=== PATIENT | female | born 1980 | race Hispanic/Latino ===

== ENCOUNTER 2018-03-14 11:21 | Emergency (ER) | payer SELFPAY ==
[2018-03-14 12:09] LABS: Absolute Lymphocytes (CBC) 1.4 K/uL (0.7-4.9); Absolute Monocytes 0.5 K/uL (0.1-1.3); Absolute Neutrophil 4.7 K/uL (1.8-8.0); Basophils % 0.6 % (0-1.3); Eosinophils % 1.6 % (0-4.4); Hematocrit 27.6 % (36.0-45.0); Lymphocytes % 20.5 % (15.3-44.8); MPV 10.7 fL (7.6-11.3); Monocytes % 7.1 % (3.3-12.3); RBC Red Blood Cell Count 3.95 M/uL (3.86-4.86)
--- NOTE | 2018-03-14 12:23 | RAD REPORT ---
EXAM DESCRIPTION: RAD - Chest Single View - 03/14/2018 12:17 pm CLINICAL HISTORY: DYSPNEA Chest pain. COMPARISON: No comparisons FINDINGS: Portable technique limits examination quality. The lungs are grossly clear. The heart is normal in size. No displaced fractures. IMPRESSION: No acute intrathoracic process suspected.
[2018-03-14 12:34] LABS: ALT/SGPT 21 U/L (12-78); AST/SGOT 23 U/L (15-37); Albumin 3.6 g/dL (3.4-5.0); Alkaline Phosphatase 97 U/L (45-117); BUN Blood Urea Nitrogen 11 mg/dL (7-18); Bicarbonate 24 mmol/L (21-32); Bilirubin Direct < 0.1 mg/dL (0-0.2); Bilirubin Total 0.2 mg/dL (0.2-1.0); Glucose Level 89 mg/dL (74-106); Magnesium 2.2 mg/dL (1.8-2.4); NT PRO-BNP 77 pg/mL (<125); Potassium 4.1 mmol/L (3.5-5.1); Protein, Total 7.9 g/dL (6.4-8.2); Sodium Level 139 mmol/L (136-145)
[2018-03-14 12:44] LABS: Anisocytosis 1+; Blood Morphology Comment NOTED (NOT SEEN); Hypochromasia 1+; Platelet Estimate ADEQ
[2018-03-14] MEDS ORDERED: ACETAMINOPHEN 325 MG TABLET ONE (12:53)
--- NOTE | 2018-03-14 13:33 | RAD REPORT ---
EXAM DESCRIPTION: CT - Head Brain Wo Cont - 03/14/2018 1:08 pm CLINICAL HISTORY: HEADACHE Hypertension COMPARISON: 07/18/2015 TECHNIQUE: All CT scans are performed using dose optimization technique as appropriate and may inclu de automated exposure control or mA/KV adjustment according to patient size. FINDINGS: No intracranial hemorrhage, hydrocephalus or extra-axial fluid collection.No areas of brai n edema or evidence of midline shift. The paranasal sinuses and mastoids are clear. The calvarium is intact. IMPRESSION: No acute intracranial abnormality.
[2018-03-14 13:38] LABS: Urine Blood TRACE (NEG); Urine Glucose NEGATIVE (NEG); Urine Protein NEGATIVE (NEG); Urine pH 6.5 (5.0-7.0)
--- NOTE | 2018-03-14 13:42 | ER ---
Nurse's Notes [facility] Name: Marii Bahena Age: 37 yrs Sex: Female : 1980 Arrival Date: 03/14/2018 Time: 11:23 Bed 17 Private MD: None, None Diagnosis: Essential (primary) hypertension;Anemia, unspecified Presentation: 03/14 11:33 Presenting complaint: Patient states: "My blood pressure has been high all weekend. lk1 Since Thursday I have felt really tired and short of breath. It feels like I have been running, and I have not.". Transition of care: patient was not received from another setting of care. Onset of symptoms was March 12, 2018. Risk Assessment: Do you want to hurt yourself or someone else? Patient reports no desire to harm self or others. Initial Sepsis Screen: Does the patient meet any 2 criteria? No. Patient's initial sepsis screen is negative. Does the patient have a suspected source of infection? No. Patient's initial sepsis screen is negative. Care prior to arrival: None. 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 - Social history:: Smoking status: Patient/guardian denies using tobacco. - Ebola Screening: : Patient negative for fever greater than or equal to 101.5 degrees Fahrenheit, and additional compatible Ebola Virus Disease symptoms Patient denies exposure to infectious person Patient denies travel to an Ebola-affected area in the 21 days before illness onset No symptoms or risks identified at this time. Screenin:40 Abuse screen: Denies threats or abuse. Nutritional screening: No deficits noted. em Tuberculosis screening: No symptoms or risk factors identified. Fall Risk None identified. Assessment: 11:48 General: Appears in no apparent distress. comfortable, Behavior is calm, cooperative. em Pain:. Pain: Complains of pain in head Pain currently is 4 out of 10 on a pain scale. Pain began 1 day ago. Neuro: Level of Consciousness is awake, alert, obeys commands, Oriented to person, place, time, situation, Moves all extremities. Gait is steady, Speech is normal, Reports headache Denies dizziness. Cardiovascular: Reports shortness of breath, Capillary refill < 3 seconds Patient's skin is warm and dry. Respiratory: Airway is patent Respiratory effort is even, unlabored, Respiratory pattern is regular, symmetrical. GI: Abdomen is flat. : Urine is clear. EENT: No signs and/or symptoms were reported regarding the EENT system. Derm: Skin is intact, Skin is pink, warm \\T\\ dry. Musculoskeletal: Range of motion: intact in all extremities. 11:50 General: The previous assessment is accurate. Call light remains within reach. . ss 12:30 Reassessment: Patient appears in no apparent distress at this time. Patient and/or em family updated on plan of care and expected duration. Pain level reassessed. Patient is alert, oriented x 3, equal unlabored respirations, skin warm/dry/pink. 13:41 Reassessment: Patient appears in no apparent distress at this time. Patient and/or em family updated on plan of care and expected duration. Pain level reassessed. Patient is alert, oriented x 3, equal unlabored respirations, skin warm/dry/pink. Vital Signs: 11:34 BP 146 / 103; Pulse 90; Resp 22; Temp 98.1(TE); Pulse Ox 98% on R/A; Pain 4/10; lk1 12:00 BP 148 / 96; Pulse 81; Resp 16; Pulse Ox 99% on R/A; em 12:30 BP 147 / 97; Pulse 79; Resp 18; Pulse Ox 99% on R/A; em 13:30 BP 141 / 95; Pulse 70; Resp 15; Pulse Ox 100% on R/A; em ED Course: 11:23 Patient arrived in ED. sb2 11:24 None, None is Private Physician. sb2 11:27 Saeed Mills LVN is Primary Nurse. em 11:28 Son Ashby MD is Attending Physician. gs 11:34 Triage completed. lk1 11:34 Arm band placed on right wrist. lk1 12:15 No provider procedures requiring assistance completed. Initial lab(s) drawn, by me, em sent to lab. Inserted saline lock: 20 gauge in right antecubital area, using aseptic technique. Blood collected. 12:18 XRAY Chest (1 view) In Process Unspecified. EDMS 12:21 EKG done, by ED staff, reviewed by Son Ashby MD. jp3 12:40 Patient has correct armband on for positive identification. Bed in low position. Call em light in reach. Adult w/ patient. 13:07 CT completed. Patient tolerated procedure well. Patient moved back from CT. bq 13:08 CT Head Brain wo Cont In Process Unspecified. EDMS 13:41 Debra Patel DO is Referral Physician. gs 14:07 IV discontinued, intact, bleeding controlled, No redness/swelling at site. Pressure em dressing applied. Administered Medications: 12:53 Drug: Tylenol 650 mg Route: PO; em 13:40 Follow up: Response: No adverse reaction; Pain is decreased em Outcome: 13:42 Discharge ordered by MD. gs 14:07 Discharged to home ambulatory. em 14:07 Condition: good 14:07 Discharge instructions given to patient, Instructed on discharge instructions, follow up and referral plans. medication usage, Demonstrated understanding of instructions, follow-up care, medications, Prescriptions given X 2. 14:08 Patient left the ED. em Signatures: Dispatcher [employer] EDMS Tawanna Haywood bq Gene, Saeed, MANUFACTURING ELECTRICIAN MANUFACTURING ELECTRICIAN em Colleen Mims RN RN ss Kluge, Leah, RN RN lk1 Son Ashby MD MD Patsy Khalil2 Andrea Purvis jp3
--- NOTE | 2018-03-14 13:42 | EDPHYS ---
Physician Documentation [facility] Name: Marii Bahena Age: 37 yrs Sex: Female : 1980 Arrival Date: 03/14/2018 Time: 11:23 Bed 17 Private MD: None, None ED Physician Son Ashby HPI: 03/14 13:39 This 37 yrs old Female presents to ER via Ambulatory with complaints of High gs Blood Pressure. 13:39 The patient has elevated blood pressure and discovered this at home. Onset: The gs symptoms/episode began/occurred 1 week(s) ago. Modifying factors:. Associated signs and symptoms: Pertinent positives: headache. Severity of symptoms: At its worst the blood pressure was moderate, in the emergency department the blood pressure is unchanged. The patient has not experienced similar symptoms in the past. 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 - Social history:: Smoking status: Patient/guardian denies using tobacco. - Ebola Screening: : Patient negative for fever greater than or equal to 101.5 degrees Fahrenheit, and additional compatible Ebola Virus Disease symptoms Patient denies exposure to infectious person Patient denies travel to an Ebola-affected area in the 21 days before illness onset No symptoms or risks identified at this time. ROS: 13:39 Cardiovascular: Positive for palpitations. gs 13:39 Respiratory: Positive for shortness of breath. 13:39 All other systems are negative. Exam: 13:39 Head/Face: Normocephalic, atraumatic. Eyes: Pupils equal round and reactive to light, gs extra-ocular motions intact. Lids and lashes normal. Conjunctiva and sclera are non-icteric and not injected. Cornea within normal limits. Periorbital areas with no swelling, redness, or edema. ENT: Nares patent. No nasal discharge, no septal abnormalities noted. Tympanic membranes are normal and external auditory canals are clear. Oropharynx with no redness, swelling, or masses, exudates, or evidence of obstruction, uvula midline. Mucous membranes moist. Neck: Trachea midline, no thyromegaly or masses palpated, and no cervical lymphadenopathy. Supple, full range of motion without nuchal rigidity, or vertebral point tenderness. No Meningismus. Chest/axilla: Normal chest wall appearance and motion. Nontender with no deformity. No lesions are appreciated. Cardiovascular: Regular rate and rhythm with a normal S1 and S2. No gallops, murmurs, or rubs. Normal PMI, no JVD. No pulse deficits. Respiratory: Lungs have equal breath sounds bilaterally, clear to auscultation and percussion. No rales, rhonchi or wheezes noted. No increased work of breathing, no retractions or nasal flaring. Abdomen/GI: Soft, non-tender, with normal bowel sounds. No distension or tympany. No guarding or rebound. No evidence of tenderness throughout. Back: No spinal tenderness. No costovertebral tenderness. Full range of motion. Skin: Warm, dry with normal turgor. Normal color with no rashes, no lesions, and no evidence of cellulitis. MS/ Extremity: Pulses equal, no cyanosis. Neurovascular intact. Full, normal range of motion. Neuro: Awake and alert, GCS 15, oriented to person, place, time, and situation. Cranial nerves II-XII grossly intact. Motor strength 5/5 in all extremities. Sensory grossly intact. Cerebellar exam normal. Normal gait. 13:39 Constitutional: The patient appears alert, awake. 13:39 ECG was reviewed by the Attending Physician. Vital Signs: 11:34 BP 146 / 103; Pulse 90; Resp 22; Temp 98.1(TE); Pulse Ox 98% on R/A; Pain 4/10; lk1 12:00 BP 148 / 96; Pulse 81; Resp 16; Pulse Ox 99% on R/A; em 12:30 BP 147 / 97; Pulse 79; Resp 18; Pulse Ox 99% on R/A; em 13:30 BP 141 / 95; Pulse 70; Resp 15; Pulse Ox 100% on R/A; em MDM: 11:38 Patient medically screened. 13:39 Differential diagnosis: hypertensive crisis, Malignant HTN, CVA. Data reviewed: vital gs signs, nurses notes. Response to treatment: the patient's symptoms have markedly improved after treatment, and as a result, I will discharge patient. 03/14 11:40 Order name: Basic Metabolic Panel; Complete Time: 12:41 03/14 11:40 Order name: CBC with Diff; Complete Time: 13:35 03/14 11:40 Order name: LFT's; Complete Time: 12:41 03/14 11:40 Order name: Magnesium; Complete Time: 12:41 03/14 11:40 Order name: NT PRO-BNP; Complete Time: 12:41 03/14 11:40 Order name: Troponin (emerg Dept Use Only); Complete Time: 12:41 03/14 11:40 Order name: XRAY Chest (1 view); Complete Time: 12:25 03/14 11:40 Order name: EKG; Complete Time: 11:41 03/14 11:40 Order name: TSH; Complete Time: 12:41 03/14 12:44 Order name: Manual Differential; Complete Time: 13:35 EDMS 03/14 12:52 Order name: Urine Dipstick--Ancillary (enter results); Complete Time: 13:39 [facility] 03/14 12:52 Order name: Urine --Ancillary (enter results); Complete Time: 13:39 [facility] 03/14 12:53 Order name: CT Head Brain wo Cont; Complete Time: 13:35 03/14 11:40 Order name: Cardiac monitoring; Complete Time: 12:20 03/14 11:40 Order name: EKG - Nurse/Tech; Complete Time: 12:20 03/14 11:40 Order name: IV Saline Lock; Complete Time: 12:20 03/14 11:40 Order name: Labs collected and sent; Complete Time: 12:20 03/14 11:40 Order name: O2 Per Protocol; Complete Time: 12:20 03/14 11:40 Order name: O2 Sat Monitoring; Complete Time: 12:20 03/14 11:40 Order name: Urine Dipstick-Ancillary (obtain specimen); Complete Time: 12:19 gs EC:39 Rate is 76 beats/min. Rhythm is regular. No Q waves. T waves are Normal. No ST changes gs noted. Clinical impression: Normal ECG. Interpreted by me. Administered Medications: 12:53 Drug: Tylenol 650 mg Route: PO; em 13:40 Follow up: Response: No adverse reaction; Pain is decreased em Disposition: 03/14/18 13:42 Discharged to Home. Impression: Essential (primary) hypertension, Anemia, unspecified. - Condition is Stable. - Discharge Instructions: Hypertension, Managing Your High Blood Pressure. - Prescriptions for Ferrous Sulfate 325 mg (65 mg Iron) Oral Tablet - take 1 tablet by ORAL route every 12 hours TAKE WITH 500 MG VITAMIN C TWICE A DAY; 30 tablet. Hydrochlorothiazide 25 mg Oral Tablet - take 1 tablet by ORAL route once daily .; 15 tablet. - Medication Reconciliation Form, Thank You Letter, Antibiotic Education, Prescription Opioid Use form. - Follow up: Private Physician; When: 2 - 3 days; Reason: Re-evaluation by your physician. Follow up: Licha-Chadd Patel; When: 2 - 3 days; Reason: Re-evaluation by your physician. - Problem is new. - Symptoms have improved. Signatures: Dispatcher [employer] EDSaeed Avelar, PUBLIC ADMINISTRATION TEACHER PUBLIC ADMINISTRATION TEACHER Abiola Dominguez, CRISTINA RN lk1 Son Ashby MD MD Corrections: (The following items were deleted from the chart) 14:08 13:42 03/14/2018 13:42 Discharged to Home. Impression: Essential (primary) em hypertension; Anemia, unspecified. Condition is Stable. Discharge Instructions: Managing Your High Blood Pressure, Hypertension. Prescriptions for Ferrous Sulfate 325 mg (65 mg Iron) Oral Tablet - take 1 tablet by ORAL route every 12 hours TAKE WITH 500 MG VITAMIN C TWICE A DAY; 30 tablet, Hydrochlorothiazide 25 mg Oral Tablet - take 1 tablet by ORAL route once daily .; 15 tablet. and Forms are Medication Reconciliation Form, Thank You Letter, Antibiotic Education, Prescription Opioid Use. Follow up: Private Physician; When: 2 - 3 days; Reason: Re-evaluation by your physician. Follow up: Licha-Chadd Patel; When: 2 - 3 days; Reason: Re-evaluation by your physician. Problem is new. Symptoms have improved. gs
--- NOTE | 2018-03-14 21:59 | EKG ---
Test Date: 2018-03-14 Test Time: 12:05:41 Mold Cooler: TIFFANY MEASUREMENT RESULTS: Intervals: Rate: 76 GA: 154 QRSD: 80 QT: 378 QTc: 425 [place]: P: 57 GA: 154 QRS: 46 T: 33 INTERPRETIVE STATEMENTS: Normal sinus rhythm Normal ECG Compared to ECG 07/18/2015 11:27:54 Left ventricular hypertrophy no longer present Electronically Signed On 03-14-18 21:58:54 CDT by James Mora
== END 2018-03-14 14:08 | disposition home or self-care (01) ==
LOC: ER 11:21
DX: D64.9 Anemia, unspecified (principal)
CPT/HCPCS: 36415; 70450; 71045; 80048; 80076; 81003; 81025; 83735; 83880; 84443; 84484; 85025; 93005; 99284

== ENCOUNTER 2018-10-04 11:19 | Emergency (ER) | payer SELFPAY ==
--- NOTE | 2018-10-04 12:29 | ER ---
Nurse's Notes [facility] Name: Marii Bahena Age: 38 yrs Sex: Female : 1980 Arrival Date: 10/04/2018 Time: 11:20 Bed 10 Private MD: Diagnosis: Acute upper respiratory infection, unspecified;Cough Presentation: 10/04 11:27 Presenting complaint: Patient states: cough, sore throat, right ear pain, denies fever. iw Transition of care: patient was not received from another setting of care. Onset of symptoms was September 30, 2018. Risk Assessment: Do you want to hurt yourself or someone else? Patient reports no desire to harm self or others. Initial Sepsis Screen: Does the patient meet any 2 criteria? No. Patient's initial sepsis screen is negative. Does the patient have a suspected source of infection? No. Patient's initial sepsis screen is negative. Care prior to arrival: None. 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 - Social history:: Smoking status: Patient/guardian denies using tobacco. - Ebola Screening: : Patient negative for fever greater than or equal to 101.5 degrees Fahrenheit, and additional compatible Ebola Virus Disease symptoms Patient denies exposure to infectious person Patient denies travel to an Ebola-affected area in the 21 days before illness onset No symptoms or risks identified at this time. Screenin:52 Abuse screen: Denies threats or abuse. Denies injuries from another. Nutritional iw screening: No deficits noted. Tuberculosis screening: No symptoms or risk factors identified. Fall Risk None identified. Assessment: 11:52 General: Appears in no apparent distress. Behavior is calm, cooperative. General: iw Denies fever. Pain: Complains of pain in throat. Neuro: Level of Consciousness is awake, alert, obeys commands, Oriented to person, place, time, situation, Moves all extremities. Full function. Cardiovascular: Patient's skin is warm and dry. Respiratory: Reports cough that is non-productive, Airway is patent Respiratory effort is even, unlabored, Breath sounds are clear bilaterally. EENT: Throat is reddened bilaterally with gag reflex present, Reports difficulty swallowing. Derm: Skin is intact, is healthy with good turgor. Musculoskeletal: Range of motion: intact in all extremities. Vital Signs: 11:35 BP 135 / 74; Pulse 69; Resp 16; Temp 98.2; Pulse Ox 100% on R/A; Weight 50.35 kg; iw Height 5 ft. 2 in. (157.48 cm); Pain 10/10; 11:35 Body Mass Index 20.30 (50.35 kg, 157.48 cm) iw ED Course: 11:20 Patient arrived in ED. as 11:27 Jyothi Ryan, RN is Primary Nurse. iw 11:27 Arm band placed on. iw 11:28 Triage completed. iw 11:30 Patient has correct armband on for positive identification. iw 11:31 Inocente Valentine MD is Attending Physician. juan josé 11:52 No provider procedures requiring assistance completed. Patient did not have IV access iw during this emergency room visit. Administered Medications: No medications were administered Outcome: 12:29 Discharge ordered by . juan josé 12:54 Discharged to home ambulatory. iw 12:54 Discharge instructions given to patient, Instructed on discharge instructions, follow up and referral plans. Demonstrated understanding of instructions, follow-up care, medications, Prescriptions given X 2. 12:55 Patient left the ED. iw 12:55 Condition: good iw Signatures: Inocente Valentine MD MD cha Martinez, Amelia as Jyothi Ryan, RN RN iw Corrections: (The following items were deleted from the chart) 17:13 13:06 Patient left the ED. iw iw
--- NOTE | 2018-10-04 12:29 | EDPHYS ---
Physician Documentation [facility] Name: Marii Bahena Age: 38 yrs Sex: Female : 1980 Arrival Date: 10/04/2018 Time: 11:20 Bed 10 Private MD: ED Physician Inocente Valentine HPI: 10/04 12:18 This 38 yrs old Female presents to ER via Ambulatory with complaints of Sore juan josé Throat, Ear Pain. 12:18 The patient presents with sore throat. The patient describes throat pain as constant. juan josé Onset: The symptoms/episode began/occurred 2 day(s) ago. Severity of symptoms: At their worst the symptoms were mild, in the emergency department the symptoms are unchanged. Modifying factors: The symptoms are alleviated by nothing, the symptoms are aggravated by nothing. Associated signs and symptoms: The patient has no apparent associated signs or symptoms. The patient has not experienced similar symptoms in the past. 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 - Social history:: Smoking status: Patient/guardian denies using tobacco. - Ebola Screening: : Patient negative for fever greater than or equal to 101.5 degrees Fahrenheit, and additional compatible Ebola Virus Disease symptoms Patient denies exposure to infectious person Patient denies travel to an Ebola-affected area in the 21 days before illness onset No symptoms or risks identified at this time. ROS: 12:19 Constitutional: Negative for fever, chills, and weight loss, Eyes: Negative for injury, juan josé pain, redness, and discharge, Neck: Negative for injury, pain, and swelling, Cardiovascular: Negative for chest pain, palpitations, and edema, Abdomen/GI: Negative for abdominal pain, nausea, vomiting, diarrhea, and constipation, Back: Negative for injury and pain, : Negative for injury, bleeding, discharge, and swelling, MS/Extremity: Negative for injury and deformity, Skin: Negative for injury, rash, and discoloration, Neuro: Negative for headache, weakness, numbness, tingling, and seizure, Psych: Negative for depression, anxiety, suicide ideation, homicidal ideation, and hallucinations, Allergy/Immunology: Negative for hives, rash, and allergies, Endocrine: Negative for neck swelling, polydipsia, polyuria, polyphagia, and marked weight changes, Hematologic/Lymphatic: Negative for swollen nodes, abnormal bleeding, and unusual bruising. 12:19 ENT: Positive for rhinorrhea, sinus congestion. 12:19 Respiratory: Positive for cough, with no reported sputum. Exam: 12:19 Constitutional: This is a well developed, well nourished patient who is awake, alert, juan josé and in no acute distress. Head/Face: Normocephalic, atraumatic. Eyes: Pupils equal round and reactive to light, extra-ocular motions intact. Lids and lashes normal. Conjunctiva and sclera are non-icteric and not injected. Cornea within normal limits. Periorbital areas with no swelling, redness, or edema. ENT: Nares patent. No nasal discharge, no septal abnormalities noted. Tympanic membranes are normal and external auditory canals are clear. Oropharynx with no redness, swelling, or masses, exudates, or evidence of obstruction, uvula midline. Mucous membranes moist. Neck: Trachea midline, no thyromegaly or masses palpated, and no cervical lymphadenopathy. Supple, full range of motion without nuchal rigidity, or vertebral point tenderness. No Meningismus. Chest/axilla: Normal chest wall appearance and motion. Nontender with no deformity. No lesions are appreciated. Cardiovascular: Regular rate and rhythm with a normal S1 and S2. No gallops, murmurs, or rubs. Normal PMI, no JVD. No pulse deficits. Abdomen/GI: Soft, non-tender, with normal bowel sounds. No distension or tympany. No guarding or rebound. No evidence of tenderness throughout. Back: No spinal tenderness. No costovertebral tenderness. Full range of motion. Female : Normal external genitalia. Skin: Warm, dry with normal turgor. Normal color with no rashes, no lesions, and no evidence of cellulitis. MS/ Extremity: Pulses equal, no cyanosis. Neurovascular intact. Full, normal range of motion. Neuro: Awake and alert, GCS 15, oriented to person, place, time, and situation. Cranial nerves II-XII grossly intact. Motor strength 5/5 in all extremities. Sensory grossly intact. Cerebellar exam normal. Normal gait. Psych: Awake, alert, with orientation to person, place and time. Behavior, mood, and affect are within normal limits. 12:19 Musculoskeletal/extremity: DVT Exam: No signs of deep vein thrombosis. no pain, no swelling, no tenderness, negative Homans' sign noted on exam, no appreciated bluish discoloration, no erythema, no increased warmth. Vital Signs: 11:35 BP 135 / 74; Pulse 69; Resp 16; Temp 98.2; Pulse Ox 100% on R/A; Weight 50.35 kg; iw Height 5 ft. 2 in. (157.48 cm); Pain 10/10; 11:35 Body Mass Index 20.30 (50.35 kg, 157.48 cm) iw MDM: 11:31 Patient medically screened. [facility] 12:21 Data reviewed: vital signs, nurses notes. [facility] Administered Medications: No medications were administered Disposition: 10/04/18 12:29 Discharged to Home. Impression: Acute upper respiratory infection, unspecified, Cough. - Condition is Stable. - Discharge Instructions: Fever, Adult, Upper Respiratory Infection, Adult, Cool Mist Vaporizer, Upper Respiratory Infection, Adult, [id number], Fever, Adult, [id number]. - Prescriptions for Yue- D 12 Hour 60-120 mg Oral Tablet Sustained Release 12 hr - take 1 tablet by ORAL route every 12 hours As needed; 20 tablet. Zithromax Z- Suhas 250 mg Oral Tablet - take 1 tablet by ORAL route as directed for 5 days Day 1 - take two (2) tablets one time. Day 2, 3, 4 , 5 take one (1) tablet once daily.; 6 tablet. Guaifenesin AC 10- 100 mg/5 mL Oral Liquid - take 10 milliliters by ORAL route every 4 hours As needed; 160 milliliter. - Medication Reconciliation Form, Thank You Letter, Antibiotic Education, Prescription Opioid Use, Family Work Release form. - Follow up: Private Physician; When: 2 - 3 days; Reason: Recheck today's complaints, Continuance of care, Re-evaluation by your physician. - Problem is new. - Symptoms have improved. Signatures: Inocente Valentine MD MD cha Williams, Irene RN RN iw Corrections: (The following items were deleted from the chart) 13:06 12:29 10/04/2018 12:29 Discharged to Home. Impression: Acute upper respiratory iw infection, unspecified; Cough. Condition is Stable. Discharge Instructions: Upper Respiratory Infection, Adult, Cool Mist Vaporizer, Upper Respiratory Infection, Adult, [id number]-[id number], Fever, Adult, Fever, Adult, [id number]. Prescriptions for Yue-D 12 Hour 60-120 mg Oral Tablet Sustained Release 12 hr - take 1 tablet by ORAL route every 12 hours As needed; 20 tablet, Zithromax Z-Suhas 250 mg Oral Tablet - take 1 tablet by ORAL route as directed for 5 days Day 1 - take two (2) tablets one time. Day 2, 3, 4 , 5 take one (1) tablet once daily.; 6 tablet, Guaifenesin AC 10-100 mg/5 mL Oral Liquid - take 10 milliliters by ORAL route every 4 hours As needed; 160 milliliter. and Forms are Medication Reconciliation Form, Thank You Letter, Antibiotic Education, Prescription Opioid Use. Follow up: Private Physician; When: 2 - 3 days; Reason: Recheck today's complaints, Continuance of care, Re-evaluation by your physician. Problem is new. Symptoms have improved. juan josé
[2018-10-04] MEDS ORDERED: AZITHROMYCIN 250 MG TAB ONE (12:43)
[2018-10-04] MEDS ORDERED: CEFTRIAXONE 1000 MG/VIAL ONE (12:43)
[2018-10-04] MEDS ORDERED: HYDROCODONE/CHLORPHEN 5 ML/OSYR ONE (12:43)
[2018-10-04] MEDS ORDERED: predniSONE 20 MG TAB ONE (12:44)
== END 2018-10-04 13:06 | disposition home or self-care (01) ==
LOC: ER 11:19
DX: J06.9 Acute upper respiratory infection, unspecified (principal); R05 Cough
CPT/HCPCS: J7512

== ENCOUNTER 2019-05-31 17:37 | Emergency (ER) | payer SELFPAY ==
[2019-05-31] MEDS ORDERED: MORPHINE 4 MG/ML SYR ONE (18:40)
[2019-05-31] MEDS ORDERED: ONDANSETRON 4 MG/2 ML VIAL ONE (18:41)
[2019-05-31] MEDS ORDERED: NA CHLORIDE 0.9% 1,000 ML ONE (18:41)
[2019-05-31 18:44] LABS: Specific Gravity 1.025 (1.005-1.030)
[2019-05-31] MEDS ORDERED: DIPHENHYDRAMINE 50 MG/ML VIAL ONE (18:48)
[2019-05-31 18:51] LABS: Urine Bacteria <20 /HPF (<20); Urine Culture Reflex Order NOT NEEDED; Urine RBC <5 /HPF (NONE SEEN)
[2019-05-31 18:55] LABS: Basophils % 0.6 % (0-1.3); Hematocrit 31.2 % (36.0-45.0); Lymphocytes % 19.1 % (15.3-44.8); MPV 10.4 fL (7.6-11.3); RBC Red Blood Cell Count 4.12 M/uL (3.86-4.86)
[2019-05-31] MEDS ORDERED: CEFTRIAXONE/SWI 2gm 2 GM/20 ML SYR IVP ONE (19:00)
[2019-05-31 19:27] LABS: ALT/SGPT 17 U/L (12-78); AST/SGOT 14 U/L (15-37); Albumin 4.2 g/dL (3.4-5.0); Alkaline Phosphatase 93 U/L (45-117); BUN Blood Urea Nitrogen 16 mg/dL (7-18); Bicarbonate 26 mmol/L (21-32); Bilirubin Direct < 0.1 mg/dL (0-0.2); Bilirubin Total 0.2 mg/dL (0.2-1.0); Glucose Level 87 mg/dL (74-106); Lipase 148 U/L (73-393); Potassium 3.1 mmol/L (3.5-5.1); Sodium Level 138 mmol/L (136-145)
[2019-05-31] MEDS ORDERED: POTASSIUM 25 MEQ EFFERV TAB ONE (19:58)
--- NOTE | 2019-05-31 20:18 | RAD REPORT ---
EXAM DESCRIPTION: CT - Stone Protocol - 05/31/2019 7:59 pm CLINICAL HISTORY: Abdominal pain. Right flank pain COMPARISON: None. TECHNIQUE: Computed axial tomography of the abdomen pelvis was obtained without oral or IV contrast. Lack of IV and oral contrast limits evaluation of solid organs, bowel, and vessels. Coronal reformat richard images were obtained and reviewed. All CT scans are performed using dose optimization technique as appropriate and may include automated exposure control or mA/KV adjustment according to patient size. FINDINGS: Small bilateral renal calculi. Mild right hydronephrosis. Right ureteral calculus is not c learly seen. A bladder calculus is not noted. A 2 millimeter calcification lies immediately inferior to the bladder. It probably lies outside of the urethra The liver, spleen, pancreas and adrenals appear grossly normal There is no evidence of diverticulitis. A moderate amount of stool is present within the colon. IMPRESSION: Small bilateral renal calculi Mild right hydronephrosis. A ureteral calculus is not seen.
--- NOTE | 2019-05-31 20:22 | EDPHYS ---
Physician Documentation [facility] Name: Marii Bahena Age: 38 yrs Sex: Female : 1980 Arrival Date: 05/31/2019 Time: 17:41 Bed 19 Private MD: ED Physician Inocente Valentine HPI: 05/31 18:15 This 38 yrs old Female presents to ER via Ambulatory with complaints of Flank juan josé Pain, Pain With Urination. 18:15 The patient complains of pain in the right mid back and right low back. The pain juan josé radiates to the right mid back and right low back. Onset: The symptoms/episode began/occurred 3 day(s) ago. Modifying factors: The symptoms are alleviated by nothing. the symptoms are aggravated by movement, palpation/percussion. Associated signs and symptoms: Pertinent positives: dysuria, urinary frequency, nausea. Severity of pain: At its worst the pain was moderate severe in the emergency department the pain is unchanged. The patient has experienced similar episodes in the past, a few times. 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 - Social history:: Smoking status: Patient/guardian denies using tobacco. - Ebola Screening: : No symptoms or risks identified at this time. - Family history:: not pertinent. ROS: 18:15 Constitutional: Negative for fever, chills, and weight loss, Eyes: Negative for injury, juan josé pain, redness, and discharge, ENT: Negative for injury, pain, and discharge, Neck: Negative for injury, pain, and swelling, Cardiovascular: Negative for chest pain, palpitations, and edema, Respiratory: Negative for shortness of breath, cough, wheezing, and pleuritic chest pain, : Negative for injury, bleeding, discharge, and swelling, MS/Extremity: Negative for injury and deformity, Skin: Negative for injury, rash, and discoloration, Neuro: Negative for headache, weakness, numbness, tingling, and seizure, Psych: Negative for depression, anxiety, suicide ideation, homicidal ideation, and hallucinations, Allergy/Immunology: Negative for hives, rash, and allergies, Endocrine: Negative for neck swelling, polydipsia, polyuria, polyphagia, and marked weight changes, Hematologic/Lymphatic: Negative for swollen nodes, abnormal bleeding, and unusual bruising. 18:15 Abdomen/GI: Positive for abdominal pain, of the posterior aspect of right lateral abdomen, anterior aspect of right lateral abdomen, right upper quadrant and right lower quadrant. Exam: 18:15 Constitutional: This is a well developed, well nourished patient who is awake, alert, juan josé and in no acute distress. Head/Face: Normocephalic, atraumatic. Eyes: Pupils equal round and reactive to light, extra-ocular motions intact. Lids and lashes normal. Conjunctiva and sclera are non-icteric and not injected. Cornea within normal limits. Periorbital areas with no swelling, redness, or edema. ENT: Nares patent. No nasal discharge, no septal abnormalities noted. Tympanic membranes are normal and external auditory canals are clear. Oropharynx with no redness, swelling, or masses, exudates, or evidence of obstruction, uvula midline. Mucous membranes moist. Neck: Trachea midline, no thyromegaly or masses palpated, and no cervical lymphadenopathy. Supple, full range of motion without nuchal rigidity, or vertebral point tenderness. No Meningismus. Chest/axilla: Normal chest wall appearance and motion. Nontender with no deformity. No lesions are appreciated. Cardiovascular: Regular rate and rhythm with a normal S1 and S2. No gallops, murmurs, or rubs. Normal PMI, no JVD. No pulse deficits. Respiratory: Lungs have equal breath sounds bilaterally, clear to auscultation and percussion. No rales, rhonchi or wheezes noted. No increased work of breathing, no retractions or nasal flaring. Skin: Warm, dry with normal turgor. Normal color with no rashes, no lesions, and no evidence of cellulitis. MS/ Extremity: Pulses equal, no cyanosis. Neurovascular intact. Full, normal range of motion. Neuro: Awake and alert, GCS 15, oriented to person, place, time, and situation. Cranial nerves II-XII grossly intact. Motor strength 5/5 in all extremities. Sensory grossly intact. Cerebellar exam normal. Normal gait. 18:15 Back: pain, that is moderate, ROM is painful, normal spinal alignment noted, CVA tenderness, that is moderate, is noted on the right, muscle spasm, is not present. Vital Signs: 17:51 BP 110 / 78; Pulse 83; Resp 16; Temp 98.7; Pulse Ox 100% on R/A; Weight 68.04 kg; hb Height 5 ft. 1 in. (154.94 cm); Pain 9/10; 18:54 BP 122 / 76; Pulse 68; Resp 17; Pulse Ox 100% ; bp 19:45 BP 126 / 93; Pulse 69; Resp 16 S; Pulse Ox 97% on R/A; Pain 0/10; jd3 17:51 Body Mass Index 28.34 (68.04 kg, 154.94 cm) hb MDM: 17:59 Patient medically screened. [facility] 18:15 Data reviewed: vital signs, nurses notes, lab test result(s), radiologic studies, CT juan josé scan. 05/31 18:15 Order name: Basic Metabolic Panel; Complete Time: 19:44 [facility] 05/31 18:15 Order name: CBC with Diff; Complete Time: 19:44 [facility] 05/31 18:15 Order name: Creatinine for Radiology; Complete Time: 19:44 [facility] 05/31 18:15 Order name: Hepatic Function; Complete Time: 19:44 [facility] 05/31 18:15 Order name: Lipase; Complete Time: 19:44 [facility] 05/31 18:15 Order name: Urine Culture [facility] 05/31 18:15 Order name: Test, Serum; Complete Time: 19:54 [facility] 05/31 18:15 Order name: CT Stone Protocol; Complete Time: 20:34 [facility] 05/31 18:18 Order name: Urine Microscopic Only; Complete Time: 19:44 bp 05/31 18:18 Order name: Urine Dipstick--Ancillary (enter results) 05/31 18:27 Order name: Test, Urine; Complete Time: 19:44 EDMS 05/31 18:15 Order name: IV Saline Lock; Complete Time: 18:34 [facility] 05/31 18:15 Order name: Labs collected and sent; Complete Time: 18:34 [facility] 05/31 18:15 Order name: Urine Test (obtain specimen); Complete Time: 18:17 [facility] 05/31 18:17 Order name: Urine Dipstick-Ancillary (obtain specimen); Complete Time: 18:19 bp 05/31 20:34 Order name: PO challenge: JUICE; Complete Time: 20:43 juan josé Administered Medications: 18:30 Drug: NS 0.9% 1000 ml Route: IV; Rate: 1 bolus; Site: right antecubital; bp 20:13 Follow up: Response: No adverse reaction; IV Status: Completed infusion; IV Intake: jd3 1000ml 18:30 Drug: morphine 4 mg Route: IVP; Site: right antecubital; bp 19:00 Follow up: Response: No adverse reaction; RASS: Alert and Calm (0); itching and rash up jd3 the right arm. relieved by Benadryl 18:30 Drug: Zofran 4 mg Route: IVP; Site: right antecubital; bp 19:30 Follow up: Response: No adverse reaction jd3 18:51 Drug: diphenhydrAMINE 25 mg Route: IVP; Site: right antecubital; bp 19:50 Follow up: Response: No adverse reaction jd3 18:52 Drug: Rocephin 2 grams Route: IV; Rate: per protocol; Site: right antecubital; bp 19:50 Follow up: Response: No adverse reaction; IV Status: Completed infusion jd3 20:10 Drug: Potassium Effervescent Tablet 25 mEq Route: PO; jd3 20:43 Follow up: Response: No adverse reaction jd3 20:43 Drug: Flomax 0.4 mg Route: PO; jd3 20:44 Follow up: Response: Medication administered at discharge. jd3 20:43 Drug: TORadol 30 mg Route: IVP; Site: right antecubital; jd3 20:44 Follow up: Response: Medication administered at discharge. jd3 20:44 Drug: Cipro 500 mg Route: PO; jd3 20:44 Follow up: Response: Medication administered at discharge. jd3 Disposition: 05/31/19 20:21 Discharged to Home. Impression: Urinary tract infection, site not specified, Hydronephrosis with ureteral stricture, not elsewhere classified, Hypokalemia, Constipation. - Condition is Stable. - Discharge Instructions: Constipation, Adult, Potassium Content of Foods, Dysuria, Urinary Tract Infection, Adult, Constipation, Adult, [id number], Urinary Tract Infection, Adult, [id number], Hydronephrosis, Hypokalemia. - Prescriptions for Pyridium 200 mg Oral Tablet - take 1 tablet by ORAL route every 8 hours for 3 days; 9 tablet. Tylenol- Codeine #3 300-30 mg Oral Tablet - take 2 tablets by ORAL route every 6 hours As needed; 26 tablet. Flomax 0.4 mg Oral Capsule, Sust. Release 24 hr - take 1 capsule by ORAL route once daily 1/2 hour following the same meal each day; 30 capsule. Cipro 500 mg Oral Tablet - take 1 tablet by ORAL route every 12 hours for 7 days; 14 tablet. - Medication Reconciliation Form, Thank You Letter, Antibiotic Education, Prescription Opioid Use form. - Follow up: Private Physician; When: 2 - 3 days; Reason: Recheck today's complaints, Continuance of care, Re-evaluation by your physician. Follow up: Manuela Buenrostro MD; When: 2 - 3 days; Reason: Recheck today's complaints, Re-evaluation by your physician. - Problem is new. - Symptoms have improved. Signatures: Dispatcher [employer] EDInocente Velazquez MD MD cha Baxter, Heather, RN RN hb Jt Marino RN RN jd3 Gokul An RN RN bp Corrections: (The following items were deleted from the chart) 20:23 20:21 05/31/2019 20:21 Discharged to Home. Impression: Urinary tract infection, site juan josé not specified; Hydronephrosis with ureteral stricture, not elsewhere classified; Hypokalemia. Condition is Stable. Forms are Medication Reconciliation Form, Thank You Letter, Antibiotic Education, Prescription Opioid Use. Follow up: Private Physician; When: 2 - 3 days; Reason: Recheck today's complaints, Continuance of care, Re-evaluation by your physician. Follow up: Manuela Buenrostro; When: 2 - 3 days; Reason: Recheck today's complaints, Re-evaluation by your physician. Problem is new. Symptoms have improved. juan josé 20:46 20:23 05/31/2019 20:21 Discharged to Home. Impression: Urinary tract infection, site jd3 not specified; Hydronephrosis with ureteral stricture, not elsewhere classified; Hypokalemia; Constipation. Condition is Stable. Discharge Instructions: Potassium Content of Foods, Dysuria, Urinary Tract Infection, Adult, Urinary Tract Infection, Adult, [id number], Hydronephrosis, Hypokalemia. Prescriptions for Pyridium 200 mg Oral Tablet - take 1 tablet by ORAL route every 8 hours for 3 days; 9 tablet, Tylenol-Codeine #3 300-30 mg Oral Tablet - take 2 tablet by ORAL route every 6 hours As needed; 30 tablet, Flomax 0.4 mg Oral Capsule, Sust. Release 24 hr - take 1 capsule by ORAL route once daily 1/2 hour following the same meal each day; 30 capsule, Cipro 500 mg Oral Tablet - take 1 tablet by ORAL route every 12 hours for 7 days; 14 tablet. and Forms are Medication Reconciliation Form, Thank You Letter, Antibiotic Education, Prescription Opioid Use. Follow up: Private Physician; When: 2 - 3 days; Reason: Recheck today's complaints, Continuance of care, Re-evaluation by your physician. Follow up: Manuela Buenrostro; When: 2 - 3 days; Reason: Recheck today's complaints, Re-evaluation by your physician. Problem is new. Symptoms have improved. juan josé
--- NOTE | 2019-05-31 20:22 | ER ---
Nurse's Notes [facility] Name: Marii Bahena Age: 38 yrs Sex: Female : 1980 Arrival Date: 05/31/2019 Time: 17:41 Bed 19 Private MD: Diagnosis: Urinary tract infection, site not specified;Hydronephrosis with ureteral stricture, not elsewhere classified;Hypokalemia;Constipation Presentation: 05/31 17:50 Presenting complaint: Right flank pain that radiates to right groin and pain with hb urination x 3 days. Transition of care: patient was not received from another setting of care. Onset of symptoms was May 28, 2019. Risk Assessment: Do you want to hurt yourself or someone else? Patient reports no desire to harm self or others. Initial Sepsis Screen: Does the patient meet any 2 criteria? No. Patient's initial sepsis screen is negative. Does the patient have a suspected source of infection? No. Patient's initial sepsis screen is negative. Care prior to arrival: None. 17:50 Method Of Arrival: Ambulatory hb 17:50 Acuity: JEREMIAH 3 hb Triage Assessment: 17:56 General: Appears in no apparent distress. comfortable, Behavior is cooperative, bp appropriate for age, anxious. Pain: Complains of pain in pelvis. EENT: No deficits noted. Neuro: No deficits noted. Cardiovascular: No deficits noted. Respiratory: No deficits noted. GI: No signs and/or symptoms were reported involving the gastrointestinal system. : Reports burning with urination. Derm: No deficits noted. Musculoskeletal: No deficits noted. 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 - Social history:: Smoking status: Patient/guardian denies using tobacco. - Ebola Screening: : No symptoms or risks identified at this time. - Family history:: not pertinent. Screenin:57 Abuse screen: Denies threats or abuse. Denies injuries from another. Nutritional bp screening: No deficits noted. Tuberculosis screening: No symptoms or risk factors identified. Fall Risk None identified. Assessment: 17:57 General: SEE TRIAGE NOTE. bp 18:51 Reassessment: PT EXHIBITING URTICARIA AND ERYTHEMA IMMEDIATELY AFTER MORPHINE bp ADMINISTRATION. PROVIDER INFORMED AND PT GIVEN IVP BENADRYL. S/S SUBSIDED. 19:43 Reassessment: Patient states feeling better. General: Appears in no apparent distress. jd3 comfortable, Behavior is calm, cooperative, appropriate for age. Pain: Denies pain. Neuro: Level of Consciousness is awake, alert, obeys commands, Oriented to person, place, time, situation. Cardiovascular: Capillary refill < 3 seconds Patient's skin is warm and dry. Respiratory: Airway is patent Respiratory effort is even, unlabored, Respiratory pattern is regular, symmetrical. GI: Abdomen is round non-distended, Patient currently denies abdominal pain, nausea, vomiting. : No signs and/or symptoms were reported regarding the genitourinary system. EENT: No signs and/or symptoms were reported regarding the EENT system. Derm: Skin is intact, Skin is dry, Skin is normal, Skin temperature is warm. Musculoskeletal: Circulation, motion, and sensation intact. Range of motion: intact in all extremities. Vital Signs: 17:51 BP 110 / 78; Pulse 83; Resp 16; Temp 98.7; Pulse Ox 100% on R/A; Weight 68.04 kg; hb Height 5 ft. 1 in. (154.94 cm); Pain 9/10; 18:54 BP 122 / 76; Pulse 68; Resp 17; Pulse Ox 100% ; bp 19:45 BP 126 / 93; Pulse 69; Resp 16 S; Pulse Ox 97% on R/A; Pain 0/10; jd3 17:51 Body Mass Index 28.34 (68.04 kg, 154.94 cm) hb ED Course: 17:41 Patient arrived in ED. mr 17:51 Triage completed. hb 17:51 Arm band placed on. hb 17:56 Gokul An, CRISTINA is Primary Nurse. bp 17:57 Patient has correct armband on for positive identification. Bed in low position. Call bp light in reach. Side rails up X2. Adult w/ patient. 17:59 Inocente Valentine MD is Attending Physician. juan josé 18:20 Radiology exam delayed due to test not completed at this time. vm2 18:30 Inserted saline lock: 22 gauge in right antecubital area, using aseptic technique. bp Blood collected. 19:07 Radiology exam delayed due to test not completed at this time. vm2 19:35 Radiology exam delayed due to test not completed at this time. vm2 19:59 CT completed. Patient tolerated procedure well. Patient moved to CT. Patient moved back ar from CT. 20:00 CT Stone Protocol In Process Unspecified. EDMS 20:21 Manuela Buenrostro MD is Referral Physician. juan josé 20:45 No provider procedures requiring assistance completed. IV discontinued, intact, jd3 bleeding controlled, No redness/swelling at site. Pressure dressing applied. Administered Medications: 18:30 Drug: NS 0.9% 1000 ml Route: IV; Rate: 1 bolus; Site: right antecubital; bp 20:13 Follow up: Response: No adverse reaction; IV Status: Completed infusion; IV Intake: jd3 1000ml 18:30 Drug: morphine 4 mg Route: IVP; Site: right antecubital; bp 19:00 Follow up: Response: No adverse reaction; RASS: Alert and Calm (0); itching and rash up jd3 the right arm. relieved by Benadryl 18:30 Drug: Zofran 4 mg Route: IVP; Site: right antecubital; bp 19:30 Follow up: Response: No adverse reaction jd3 18:51 Drug: diphenhydrAMINE 25 mg Route: IVP; Site: right antecubital; bp 19:50 Follow up: Response: No adverse reaction jd3 18:52 Drug: Rocephin 2 grams Route: IV; Rate: per protocol; Site: right antecubital; bp 19:50 Follow up: Response: No adverse reaction; IV Status: Completed infusion jd3 20:10 Drug: Potassium Effervescent Tablet 25 mEq Route: PO; jd3 20:43 Follow up: Response: No adverse reaction jd3 20:43 Drug: Flomax 0.4 mg Route: PO; jd3 20:44 Follow up: Response: Medication administered at discharge. jd3 20:43 Drug: TORadol 30 mg Route: IVP; Site: right antecubital; jd3 20:44 Follow up: Response: Medication administered at discharge. jd3 20:44 Drug: Cipro 500 mg Route: PO; jd3 20:44 Follow up: Response: Medication administered at discharge. jd3 Intake: 20:13 IV: 1000ml; Total: 1000ml. jd3 Outcome: 20:21 Discharge ordered by . juan josé 20:45 Discharged to home ambulatory, with family. jd3 20:45 Condition: stable 20:45 Discharge instructions given to patient, family, Instructed on discharge instructions, follow up and referral plans. medication usage, Demonstrated understanding of instructions, follow-up care, medications, Prescriptions given X 4. 20:46 Patient left the ED. jd3 Signatures: Dispatcher [employer] EDNE Inocente Valentine MD MD cha Rivera, Desirae mr HartAniya, RN RN Ricky Kebede Victoria [facility] Jt Marino RN RN jGokul Mclean RN RN bp
[2019-05-31] MEDS ORDERED: CIPROFLOXACIN HCL 500 MG TAB ONE (20:36)
[2019-05-31] MEDS ORDERED: KETOROLAC 30 MG/ML INJ ONE (20:36)
[2019-05-31] MEDS ORDERED: TAMSULOSIN 0.4 MG SR CAP ONE (20:36)
[2019-05-31 20:54] LABS: Urine Blood TRACE (NEG); Urine Glucose NEGATIVE (NEG); Urine Protein NEGATIVE (NEG); Urine pH 5.5 (5.0-7.0)
[2019-05-31 21:00] VITALS: TEMP 98.7
[2019-05-31 21:02] VITALS: BP 126/93; O2SAT 97
== END 2019-05-31 20:46 | disposition home or self-care (01) ==
LOC: ER 17:37
DX: N39.0 Urinary tract infection, site not specified (principal); N13.1 Hydronephrosis with ureteral stricture, not elsewhere classified; E87.6 Hypokalemia; K59.00 Constipation, unspecified; I10 Essential (primary) hypertension
CPT/HCPCS: 36415; 74176; 76377; 80048; 80076; 81003; 81015; 81025; 83690; 84703; 85025; 87086; 87088; 96361; 96365; 96375; 99284; J0696; J2405; J7030

== ENCOUNTER 2020-08-06 18:43 | Emergency (ER) | payer SELFPAY ==
[2020-08-06] MEDS ORDERED: NA CHLORIDE 0.9% 1,000 ML ONE (20:49)
[2020-08-06 21:00] LABS: Absolute Lymphocytes (CBC) 1.6 K/uL (0.7-4.9); Basophils % 0.8 % (0-1.3); Hematocrit 27.9 % (36.0-45.0); Lymphocytes % 17.9 % (15.3-44.8); MPV 10.1 fL (7.6-11.3); RBC Red Blood Cell Count 4.06 M/uL (3.86-4.86)
[2020-08-06 21:27] LABS: Potassium 3.4 mmol/L (3.5-5.1); Thyroid Stimulating Hormone 1.64 uIU/mL (0.360-3.740)
[2020-08-06] MEDS ORDERED: PROMETHAZINE INJ 25 MG/ML AMP ONE (21:40)
[2020-08-06] MEDS ORDERED: KETOROLAC 30 MG/ML INJ ONE (21:40)
[2020-08-06] MEDS ORDERED: atenoloL 50 MG TAB ONE (21:41)
[2020-08-06 22:12] LABS: Blood Morphology Comment NOTED (NOT SEEN); Hypochromasia 1+; Platelet Estimate ADEQ; White Blood Cell Scan OK (OK)
[2020-08-06] MEDS ORDERED: hydrOXYzine HCL 25 MG TAB ONE (22:22)
--- NOTE | 2020-08-06 22:48 | ER ---
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 Menstrual bleeding, heavier than ca1 usual started Thursday. C/O headache. Coronavirus screen: Client denies travel out of the [place] in the last 14 days. headache, Client presents with at least one sign or symptom that may indicate coronavirus-19. Standard/surgical mask placed on the client. Provider contacted for isolation considerations. The client reports previous COVID testing was negative. Date of collection: April 2020. Ebola Screen: Patient negative for fever greater than or equal to 101.5 degrees Fahrenheit, and additional compatible Ebola Virus Disease symptoms Patient denies exposure to infectious person. Patient denies travel to an Ebola-affected area in the 21 days before illness onset. No symptoms or risks identified at this time. Initial Sepsis Screen: Does the patient meet any 2 criteria? No. Patient's initial sepsis screen is negative. Does the patient have a suspected source of infection? No. Patient's initial sepsis screen is negative. Risk Assessment: Do you want to hurt yourself or someone else? Patient reports no desire to harm self or others. Onset of symptoms was August 06, 2020. 18:55 Method Of Arrival: Ambulatory ca1 18:55 Acuity: JEREMIAH 3 ca1 Triage Assessment: 20:20 Headache History: Denies prior headaches. General: Appears in no apparent distress. rr5 uncomfortable, Behavior is calm, cooperative, appropriate for age. Pain: Complains of pain in head Pain Pain began gradually, Also complains of photophobia. 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 - Social history:: Smoking status: Patient denies any tobacco usage or history of. Screenin:15 Abuse screen: Denies threats or abuse. Denies injuries from another. Nutritional rr5 screening: No deficits noted. Tuberculosis screening: No symptoms or risk factors identified. Fall Risk IV access (20 points). Total Villavicencio Fall Scale indicates No Risk (0-24 pts). Assessment: 20:20 General: Appears in no apparent distress. uncomfortable, Behavior is calm, cooperative, rr5 appropriate for age. 20:20 Pain: Complains of pain in head Pain Quality of pain is described as aching, Pain began rr5 gradually, Is intermittent. Neuro: Level of Consciousness is awake, alert, obeys commands, Oriented to person, place, time, situation, Reports headache. Cardiovascular: Reports High BP Capillary refill < 3 seconds Patient's skin is warm and dry. Respiratory: Airway is patent Respiratory effort is even, unlabored, Respiratory pattern is regular, symmetrical. GI: No signs and/or symptoms were reported involving the gastrointestinal system. : Reports vaginal bleeding that is. EENT: No signs and/or symptoms were reported regarding the EENT system. Derm: Skin is intact, is healthy with good turgor, Skin temperature is warm. Musculoskeletal: Circulation, motion, and sensation intact. Capillary refill < 3 seconds. 21:30 Reassessment: Patient appears in no apparent distress at this time. Patient is alert, rr5 oriented x 3, equal unlabored respirations, skin warm/dry/pink. awaiting for result. 22:15 Reassessment: complaint of itchiness upper and lower extremities. ED provider aware rr5 with order made and carried out. 22:55 Reassessment: Patient appears in no apparent distress at this time. Patient is alert, rr5 oriented x 3, equal unlabored respirations, skin warm/dry/pink. discharge instruction given and explained without complaint made Patient states feeling better. Patient states symptoms have improved. Vital Signs: 18:55 BP 138 / 99; Pulse 100; Resp 16 S; Temp 97.4(TE); Pulse Ox 100% on R/A; Weight 68.04 kg ca1 (R); Height 5 ft. 1 in. (154.94 cm) (R); Pain 10/10; 20:20 BP 141 / 99; Pulse 78; Resp 16; Pulse Ox 99% ; rr5 21:30 BP 133 / 89; Pulse 80; Resp 16; Pulse Ox 99% ; rr5 22:50 BP 102 / 75; Pulse 75; Resp 19; Pulse Ox 100% ; rr5 18:55 Body Mass Index 28.34 (68.04 kg, 154.94 cm) ca1 ED Course: 18:45 Patient arrived in ED. ag5 18:57 Triage completed. ca1 18:58 Arm band placed on right wrist. ca1 19:46 Eunice Navas FNP-C is [facility]. snw 19:46 Evans Alvarado MD is Attending Physician. snw 20:15 Patient has correct armband on for positive identification. Bed in low position. Call rr5 light in reach. Side rails up X2. Pulse ox on. NIBP on. 20:20 Ricardo Neely, RN is Primary Nurse. rr5 20:50 Inserted saline lock: 20 gauge in right antecubital area, using aseptic technique. rr5 Blood collected. 22:55 No provider procedures requiring assistance completed. IV discontinued, intact, rr5 bleeding controlled, No redness/swelling at site. Pressure dressing applied. Administered Medications: 20:50 Drug: NS 0.9% 1000 ml Route: IV; Rate: 125 ml/hr; Site: right antecubital; rr5 22:55 Follow up: Response: No adverse reaction; IV Status: Order to discontinue infusion; IV rr5 Intake: 450ml 21:33 Drug: TORadol 30 mg Route: IVP; Site: right antecubital; rr5 22:30 Follow up: Response: Other; complaint of itchiness rr5 21:35 Drug: Phenergan 12.5 mg Route: IVP; Site: right antecubital; rr5 22:35 Follow up: Response: Other; complaint of itchiness rr5 21:37 Drug: Atenolol 25 mg Route: PO; rr5 22:30 Follow up: Response: Other; complaint of itchiness rr5 22:16 Drug: Atarax 50 mg Route: PO; rr5 22:55 Follow up: Response: No adverse reaction; Marked relief of symptoms rr5 Intake: 22:55 IV: 450ml; Total: 450ml. rr5 Outcome: 22:47 Discharge ordered by . snw 22:55 Discharged to home ambulatory, with family. rr5 22:55 Condition: stable 22:55 Discharge instructions given to patient, Instructed on discharge instructions, follow up and referral plans. medication usage, Demonstrated understanding of instructions, follow-up care, medications, Prescriptions given X 3. 22:58 Patient left the ED. sg Signatures: Bryant Lazcano RN RN Eunice Larsen, OIL DISPATCHER-C OIL DISPATCHER-Csnw Ricardo Neely RN RN rr5 Tasneem Villatoro RN RN [facility]ofia [facility]
--- NOTE | 2020-08-06 22:48 | EDPHYS ---
Physician Documentation [facility] Name: Marii Bahena Age: 40 yrs Sex: Female : 1980 Arrival Date: 08/06/2020 Time: 18:45 Bed 14 Private MD: ED Physician Evans Alvarado HPI: 08/06 23:25 This 40 yrs old Female presents to ER via Ambulatory with complaints of High snw Blood Pressure, Headache, Vaginal Bleeding. 23:25 The patient has elevated blood pressure and discovered this pt has not gotten snw medications refilled in 4 months. Onset: The symptoms/episode began/occurred acutely. Associated signs and symptoms: Pertinent positives: headache, nausea, vaginal bleeding. Severity of symptoms: At its worst the blood pressure was moderate. It is unknown whether or not the patient has had similar symptoms in the past. The patient has not recently seen a physician. 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 - Social history:: Smoking status: Patient denies any tobacco usage or history of. ROS: 21:08 Constitutional: Negative for fever, chills, and weight loss, Eyes: Negative for injury, snw pain, redness, and discharge, ENT: Negative for injury, pain, and discharge, Neck: Negative for injury, pain, and swelling, Cardiovascular: Negative for chest pain, palpitations, and edema, Respiratory: Negative for shortness of breath, cough, wheezing, and pleuritic chest pain, Back: Negative for injury and pain, MS/Extremity: Negative for injury and deformity, Skin: Negative for injury, rash, and discoloration, Psych: Negative for depression, anxiety, suicide ideation, homicidal ideation, and hallucinations. 21:08 Abdomen/GI: Positive for abdominal pain, nausea. 21:08 : Positive for vaginal bleeding, "heavier than usual". 21:08 Neuro: Positive for headache. Exam: 21:08 Constitutional: This is a well developed, well nourished patient who is awake, alert, snw and in no acute distress. Head/Face: Normocephalic, atraumatic. Eyes: Pupils equal round and reactive to light, extra-ocular motions intact. Lids and lashes normal. Conjunctiva and sclera are non-icteric and not injected. Cornea within normal limits. Periorbital areas with no swelling, redness, or edema. ENT: Nares patent. No nasal discharge, no septal abnormalities noted. Tympanic membranes are normal and external auditory canals are clear. Oropharynx with no redness, swelling, or masses, exudates, or evidence of obstruction, uvula midline. Mucous membranes moist. Neck: Trachea midline, no thyromegaly or masses palpated, and no cervical lymphadenopathy. Supple, full range of motion without nuchal rigidity, or vertebral point tenderness. No Meningismus. Chest/axilla: Normal chest wall appearance and motion. Nontender with no deformity. No lesions are appreciated. Cardiovascular: Regular rate and rhythm with a normal S1 and S2. No gallops, murmurs, or rubs. Normal PMI, no JVD. No pulse deficits. Respiratory: Lungs have equal breath sounds bilaterally, clear to auscultation and percussion. No rales, rhonchi or wheezes noted. No increased work of breathing, no retractions or nasal flaring. Back: No spinal tenderness. No costovertebral tenderness. Full range of motion. Skin: Warm, dry with normal turgor. Normal color with no rashes, no lesions, and no evidence of cellulitis. MS/ Extremity: Pulses equal, no cyanosis. Neurovascular intact. Full, normal range of motion. Neuro: Awake and alert, GCS 15, oriented to person, place, time, and situation. Cranial nerves II-XII grossly intact. Motor strength 5/5 in all extremities. Sensory grossly intact. Cerebellar exam normal. Normal gait. Psych: Awake, alert, with orientation to person, place and time. Behavior, mood, and affect are within normal limits. 21:08 Abdomen/GI: Inspection: abdomen appears normal, Bowel sounds: normal, Palpation: mild abdominal tenderness, in the right lower quadrant, hx of BTL. Vital Signs: 18:55 BP 138 / 99; Pulse 100; Resp 16 S; Temp 97.4(TE); Pulse Ox 100% on R/A; Weight 68.04 kg ca1 (R); Height 5 ft. 1 in. (154.94 cm) (R); Pain 10/10; 20:20 BP 141 / 99; Pulse 78; Resp 16; Pulse Ox 99% ; rr5 21:30 BP 133 / 89; Pulse 80; Resp 16; Pulse Ox 99% ; rr5 22:50 BP 102 / 75; Pulse 75; Resp 19; Pulse Ox 100% ; rr5 18:55 Body Mass Index 28.34 (68.04 kg, 154.94 cm) ca1 MDM: 20:25 Patient medically screened. snw 23:24 Data reviewed: vital signs, nurses notes. Data interpreted: Pulse oximetry: on room air snw is 99 %. Interpretation: normal. Counseling: I had a detailed discussion with the patient and/or guardian regarding: the historical points, exam findings, and any diagnostic results supporting the discharge/admit diagnosis, the presence of at least one elevated blood pressure reading (>120/80) during this emergency department visit, lab results, the need for outpatient follow up, to return to the emergency department if symptoms worsen or persist or if there are any questions or concerns that arise at home. Response to treatment: the patient's symptoms have markedly improved after treatment. Special discussion: Based on the patient's Hx, exam, and Dx evaluation, there is no indication for emergent surgery or inpatient Tx. It is understood by the patient/guardian that if the Sx's persist or worsen they need to return immediately for re-evaluation. I have referred the patient to see his PCP for further evaluation of high blood pressure. Based on the history and exam findings, there is no indication for further emergent testing or inpatient evaluation. I discussed with the patient/guardian the need to see the OB Gyne specialist for further evaluation of the symptoms. I discussed with the patient/guardian the need to see the primary care provider for further evaluation of the symptoms. 08/06 20:29 Order name: CBC with Diff; Complete Time: 22:28 snw 08/06 20:29 Order name: Chem 7; Complete Time: 21:28 snw 08/06 20:29 Order name: TS; Complete Time: 21:41 snw 08/06 20:29 Order name: TSH; Complete Time: 21:28 snw 08/06 20:29 Order name: Test, Serum; Complete Time: 21:25 snw 08/06 21:02 Order name: CBC Smear Scan; Complete Time: 22:28 EDHI 08/06 21:47 Order name: Urine Microscopic Only snw 08/06 21:47 Order name: Urine Dipstick-Ancillary (obtain specimen); Complete Time: 21:48 snw 08/06 21:50 Order name: Urine Dipstick--Ancillary (enter results); Complete Time: 23:24 tt3 Administered Medications: 20:50 Drug: NS 0.9% 1000 ml Route: IV; Rate: 125 ml/hr; Site: right antecubital; rr5 22:55 Follow up: Response: No adverse reaction; IV Status: Order to discontinue infusion; IV rr5 Intake: 450ml 21:33 Drug: TORadol 30 mg Route: IVP; Site: right antecubital; rr5 22:30 Follow up: Response: Other; complaint of itchiness rr5 21:35 Drug: Phenergan 12.5 mg Route: IVP; Site: right antecubital; rr5 22:35 Follow up: Response: Other; complaint of itchiness rr5 21:37 Drug: Atenolol 25 mg Route: PO; rr5 22:30 Follow up: Response: Other; complaint of itchiness rr5 22:16 Drug: Atarax 50 mg Route: PO; rr5 22:55 Follow up: Response: No adverse reaction; Marked relief of symptoms rr5 Disposition: 08/07 01:11 Co-signature as Attending Physician, Evans Alvarado MD. pkl Disposition: 08/06/20 22:47 Discharged to Home. Impression: Iron deficiency anemia, Dysmenorrhea, unspecified, Headache, Patient's unintentional underdosing of medication regimen - Needs refill of Atenolol. - Condition is Stable. - Discharge Instructions: Iron Deficiency Anemia, Adult, Dysmenorrhea, General Headache Without Cause, Menorrhagia, Rehydration, Adult. - Prescriptions for Atenolol 25 mg Oral Tablet - take 1 tablet by ORAL route once daily; 30 tablet. Diclofenac Sodium 75 mg Oral Tablet Sustained Release - take 1 tablet by ORAL route 2 times per day; 30 tablet. promethazine 25 mg Oral Tablet - take 1 tablet by ORAL route every 6 hours As needed; 20 tablet. - Work release form, Medication Reconciliation Form, Thank You Letter, Antibiotic Education, Prescription Opioid Use form. - Follow up: Emergency Department; When: As needed; Reason: Worsening of condition. Follow up: Private Physician; When: 1 - 2 days; Reason: Recheck today's complaints, Continuance of care, Re-evaluation by your physician. Signatures: Dispatcher [employer] Bryant Mendoza RN RN Evans Roque MD MD pkl Waters, Shelly, ENDOSCOPY TECHNICIAN-C ENDOSCOPY TECHNICIAN-Csnw Ricardo Neely RN RN rr5 Tasneem Villatoro RN RN ca1 Corrections: (The following items were deleted from the chart) 08/06 22:58 22:47 08/06/2020 22:47 Discharged to Home. Impression: Iron deficiency anemia; sg Dysmenorrhea, unspecified; Headache; Patient's unintentional underdosing of medication regimen - Needs refill of Atenolol. Condition is Stable. Forms are Medication Reconciliation Form, Thank You Letter, Antibiotic Education, Prescription Opioid Use. Follow up: Emergency Department; When: As needed; Reason: Worsening of condition. Follow up: Private Physician; When: 1 - 2 days; Reason: Recheck today's complaints, Continuance of care, Re-evaluation by your physician. snw
[2020-08-06 22:51] LABS: Urine Blood 2+ (NEG); Urine Glucose NEGATIVE (NEG); Urine Protein NEGATIVE (NEG); Urine Specific Gravity >1.030 (1.005-1.030)
[2020-08-06 23:38] LABS: Urine Bacteria <20 /HPF (<20); Urine Culture Reflex Order NOT NEEDED; Urine RBC >50 /HPF (NONE SEEN)
[2020-08-07 06:21] VITALS: TEMP 97.4
[2020-08-07 06:23] VITALS: O2SAT 99
[2020-08-07 06:24] VITALS: BP 133/89
== END 2020-08-06 22:58 | disposition home or self-care (01) ==
LOC: ER 18:43
DX: N94.6 Dysmenorrhea, unspecified (principal); R51.9 Headache, unspecified; I10 Essential (primary) hypertension; D50.9 Iron deficiency anemia, unspecified; Z91.128 Patient's intentional underdosing of medication regimen for other reason
CPT/HCPCS: 36415; 80048; 81003; 81015; 84443; 84703; 85025; 86850; 86900; 86901; 96361; 96374; 96375; 99284; J2550; J7030

== ENCOUNTER 2021-04-29 13:54 | Emergency (ER) | payer OTHER ==
[2021-04-29 15:34] LABS: Urine Blood Trace-lysed (Negative); Urine Glucose Negative (Negative); Urine Protein Negative (Negative); Urine pH 6.5 (5.0-7.0)
--- NOTE | 2021-04-29 15:48 | RAD REPORT ---
EXAM DESCRIPTION: CT - Head Brain Wo Cont - 04/29/2021 3:43 pm CLINICAL HISTORY: DIZZINESS, headache, hypertension COMPARISON: Head Brain Wo Cont dated 03/14/2018 TECHNIQUE: Axial 5 mm thick images of the head were obtained without IV contrast. All CT scans are performed using dose optimization technique as appropriate and may include automated exposure control or mA/KV adjustment according to patient size. FINDINGS: No intracranial hemorrhage, mass, edema or shift of mid-line structures. No acute infarcti on changes seen. No abnormal extra-axial fluid collections. Ventricles are normal. Mastoid air cells and visualized portions of the paranasal sinuses are clear. No acute bony findings. IMPRESSION: Negative non-contrast CT head examination. No significant changes from 2018 comparison.
[2021-04-29 17:31] LABS: Absolute Lymphocytes (CBC) 1.9 K/uL (0.7-4.9); Basophils % 0.6 % (0-1.3); Hematocrit 36.9 % (36.0-45.0); Lymphocytes % 22.1 % (15.3-44.8); RBC Red Blood Cell Count 4.46 M/uL (3.86-4.86)
[2021-04-29 17:48] LABS: ALT/SGPT 22 U/L (12-78); AST/SGOT 18 U/L (15-37); Albumin 4.3 g/dL (3.4-5.0); Alkaline Phosphatase 88 U/L (45-117); BUN Blood Urea Nitrogen 13 mg/dL (7-18); Bicarbonate 28 mmol/L (21-32); Bilirubin Direct < 0.1 mg/dL (0-0.2); Bilirubin Total 0.3 mg/dL (0.2-1.0); Creatine Phosphokinase 100 U/L (26-192); Glucose Level 83 mg/dL (74-106); Lipase 99 U/L (73-393); Magnesium 2.4 mg/dL (1.8-2.4); Potassium 3.4 mmol/L (3.5-5.1); Protein, Total 9.2 g/dL (6.4-8.2); Sodium Level 138 mmol/L (136-145); Troponin (Emerg Dept Use Only) < 0.02 ng/mL (0.0-0.045)
[2021-04-29 17:49] LABS: CKMB Creatine Kinase MB < 1.0 ng/mL (1.0-3.6)
[2021-04-29 18:35] LABS: Protime INR 1.03
--- NOTE | 2021-04-29 18:35 | ER ---
Nurse's Notes [facility] Name: Marii Bahena Age: 40 yrs Sex: Female : 1980 Arrival Date: 04/29/2021 Time: 14:02 Bed Waiting Private MD: Diagnosis: Dizziness and giddiness Presentation: 04/29 15:16 Chief complaint: Dizziness x 2 days. Pain is worse with movement. Denies hb pain/cough/fever. Coronavirus screen: At this time, the client does not indicate any symptoms associated with coronavirus-19. Ebola Screen: No symptoms or risks identified at this time. Initial Sepsis Screen: Does the patient meet any 2 criteria? No. Patient's initial sepsis screen is negative. Does the patient have a suspected source of infection? No. Patient's initial sepsis screen is negative. Risk Assessment: Do you want to hurt yourself or someone else? Patient reports no desire to harm self or others. Onset of symptoms was April 28, 2021. 15:16 Method Of Arrival: Ambulatory hb 15:16 Acuity: JEREMIAH 3 hb Historical: - Allergies: 15:18 No Known Allergies; hb - Home Meds: 15:23 atenolol 25 mg oral tab once daily [Active]; hydrochlorothiazide 25 mg Oral tab 1 tab hb once daily [Active]; - PMHx: 15:18 Anemia; Hypertension; Migraines; hb - Immunization history:: Client reports receiving the 2nd dose of the Covid vaccine. - Social history:: Smoking status: Patient denies any tobacco usage or history of. Vital Signs: 15:16 Pulse 84; Resp 16; Temp 99; Pulse Ox 100% on R/A; hb ED Course: 14:02 Patient arrived in ED. ds1 15:18 Triage completed. hb 15:18 Arm band placed on. hb 15:24 Marisa Barton FNP-C is PHCP. kb 15:24 Danica Moreira is Attending Physician. kb 15:43 CT Head Brain wo Cont In Process Unspecified. EDMS Administered Medications: 15:21 Drug: Meclizine 25 mg Route: PO; hb Outcome: 18:35 Discharge ordered by MD. kb 18:41 Patient left the ED. kb Signatures: Dispatcher [employer] EDMS Marisa Barton FNP-C FNP-Ckb [place] [place] ds1 Aniya Hart, RN RN hb
--- NOTE | 2021-04-29 18:35 | EDPHYS ---
Physician Documentation [facility] Name: Marii Bahena Age: 40 yrs Sex: Female : 1980 Arrival Date: 04/29/2021 Time: 14:02 Bed Waiting Private MD: ED Physician Danica Moreira HPI: 04/29 18:49 This 40 yrs old Female presents to ER via Ambulatory with complaints of kb Dizziness. 18:49 The patient presents with dizziness. Onset: The symptoms/episode began/occurred kb yesterday. Context: occurred at home, occurred while the patient was getting up from bed, just prior to the episode the patient experienced no apparent symptoms. Modifying factors: The symptoms are alleviated by holding head still, the symptoms are aggravated by movement of head, standing up, changing position. Associated signs and symptoms: The patient has no apparent associated signs or symptoms. Severity of symptoms: At their worst the symptoms were moderate in the emergency department the symptoms are unchanged. Patient's baseline: Neuro: alert and fully oriented, Motor: no deficits, Ambulation: walks without assistance, Speech: normal. The patient has not experienced similar symptoms in the past. The patient has not recently seen a physician. Historical: - Allergies: 15:18 No Known Allergies; hb - Home Meds: 15:23 atenolol 25 mg oral tab once daily [Active]; hydrochlorothiazide 25 mg Oral tab 1 tab hb once daily [Active]; - PMHx: 15:18 Anemia; Hypertension; Migraines; hb - Immunization history:: Client reports receiving the 2nd dose of the Covid vaccine. - Social history:: Smoking status: Patient denies any tobacco usage or history of. ROS: 18:49 Constitutional: Negative for fever, chills, and weight loss. kb 18:49 Neuro: Positive for dizziness. 18:49 All other systems are negative. Exam: 18:48 Constitutional: This is a well developed, well nourished patient who is awake, alert, kb and in no acute distress. Head/Face: Normocephalic, atraumatic. Eyes: Pupils equal round and reactive to light, extra-ocular motions intact. Lids and lashes normal. Conjunctiva and sclera are non-icteric and not injected. Cornea within normal limits. Periorbital areas with no swelling, redness, or edema. ENT: Moist Mucous membranes Cardiovascular: Regular rate and rhythm with a normal S1 and S2. No gallops, murmurs, or rubs. No pulse deficits. Respiratory: Respirations even and unlabored. No increased work of breathing, no retractions or nasal flaring. Abdomen/GI: Soft, non-tender. No distention Skin: Warm, dry with normal turgor. Normal color. MS/ Extremity: Pulses equal, no cyanosis. Neurovascular intact. Full, normal range of motion. Neuro: Awake and alert, GCS 15, oriented to person, place, time, and situation. Moves all extremities. Normal gait. Psych: Awake, alert, with orientation to person, place and time. Behavior, mood, and affect are within normal limits. 18:48 ECG was reviewed by the Attending Physician. Vital Signs: 15:16 Pulse 84; Resp 16; Temp 99; Pulse Ox 100% on R/A; hb MDM: 15:24 Patient medically screened. kb 18:48 Data reviewed: vital signs, nurses notes. Data interpreted: Pulse oximetry: on room air kb is 100 %. Interpretation: normal. Counseling: I had a detailed discussion with the patient and/or guardian regarding: the historical points, exam findings, and any diagnostic results supporting the discharge/admit diagnosis, lab results, radiology results, the need for outpatient follow up, a family practitioner, to return to the emergency department if symptoms worsen or persist or if there are any questions or concerns that arise at home. ED course: Dizziness resolved after meclizine. 04/29 15:34 Order name: Urine Dipstick-Ancillary; Complete Time: 15:36 EDMS 04/29 15:36 Order name: Urine --Ancillary (enter results); Complete Time: 15:46 bd 04/29 16:02 Order name: Basic Metabolic Panel; Complete Time: 17:52 kb 04/29 16:02 Order name: CBC with Diff kb 04/29 16:02 Order name: CPK; Complete Time: 17:52 kb 04/29 16:02 Order name: Ckmb; Complete Time: 17:52 kb 04/29 15:25 Order name: CT Head Brain wo Cont; Complete Time: 15:50 kb 04/29 16:02 Order name: Hepatic Function; Complete Time: 17:52 kb 04/29 16:02 Order name: Lipase; Complete Time: 17:52 kb 04/29 16:02 Order name: Magnesium; Complete Time: 17:52 kb 04/29 16:02 Order name: Protime (+inr) 04/29 16:02 Order name: Ptt, Activated 04/29 16:02 Order name: Troponin (emerg Dept Use Only); Complete Time: 17:52 04/29 15:21 Order name: EKG; Complete Time: 15:21 04/29 15:21 Order name: EKG - Nurse/Tech; Complete Time: 15:21 04/29 15:23 Order name: Urine Dipstick-Ancillary (obtain specimen) 04/29 16:02 Order name: IV Saline Lock kb EC:48 Rate is 77 beats/min. Rhythm is regular. QRS [place] is Normal. GA interval is normal at kb 154 msec. QRS interval is normal at 84 msec. QT interval is normal at 374 msec. Administered Medications: 15:21 Drug: Meclizine 25 mg Route: PO; Disposition Summary: 04/29/21 18:35 Discharge Ordered Location: Home kb Condition: Stable kb Diagnosis - Dizziness and giddiness kb Followup: kb - With: Emergency Department - When: As needed - Reason: Worsening of condition Followup: kb - With: Private Physician - When: 2 - 3 days - Reason: Recheck today's complaints, Continuance of care, Re-evaluation by your physician Discharge Instructions: - Discharge Summary Sheet kb - Vertigo, [id number] kb - Dizziness, [id number] kb Forms: - Medication Reconciliation Form kb - Thank You Letter kb - Antibiotic Education kb - Prescription Opioid Use kb Prescriptions: - Meclizine 25 mg Oral Tablet - take 1 tablet by ORAL route every 8 hours As needed; 30 tablet; Refills: 0, kb Product Selection Permitted Addendum: 05/02/2021 07:09 Co-signature as Attending Physician, Danica Moreira I agree with the assessment and plan s p3 of care. Signatures: Dispatcher [employer] Marisa Kelley, ANMOL-C ANMOL-Aniya Godwin, RN RN Danica Randall3
[2021-04-29 18:45] VITALS: TEMP 99; O2SAT 100
[2021-04-29 20:24] LABS: Anisocytosis 1+; Blood Morphology Comment NOTED (NOT SEEN); Platelet Estimate ADEQ; White Blood Cell Scan OK (OK)
--- NOTE | 2021-04-30 16:56 | EKG ---
Test Date: 2021-04-29 Test Time: 15:21:49 Traveling Clerk: JADON MEASUREMENT RESULTS: Intervals: Rate: 77 RI: 154 QRSD: 84 QT: 374 QTc: 423 Dawn: P: 69 RI: 154 QRS: 62 T: 50 INTERPRETIVE STATEMENTS: Normal sinus rhythm Minimal voltage criteria for LVH, may be normal variant Borderline ECG Compared to ECG 03/14/2018 12:05:41 Left ventricular hypertrophy now present Electronically Signed On 04-30-21 16:53:43 CDT by Jason Berman
== END 2021-04-29 18:41 | disposition home or self-care (01) ==
LOC: ER 13:54
DX: R42 Dizziness and giddiness (principal); I10 Essential (primary) hypertension
CPT/HCPCS: 36415; 70450; 80048; 80076; 81003; 81025; 82550; 82553; 83690; 83735; 84484; 85025; 85610; 85730; 93005; 99283

== ENCOUNTER 2021-12-31 12:03 | Emergency (ER) | payer OTHER ==
[2021-12-31] MEDS ORDERED: HYDROCODONE/APAP 7.5/325 MG TAB ONE (14:00)
[2021-12-31] MEDS ORDERED: KETOROLAC 30 MG/ML INJ ONE (14:00)
[2021-12-31] MEDS ORDERED: LIDOCAINE 4% PATCH ONE (14:01)
--- NOTE | 2021-12-31 15:54 | RAD REPORT ---
EXAM DESCRIPTION: RAD - Lumbar Spine 3 Views - 12/31/2021 2:18 pm CLINICAL HISTORY: PAIN COMPARISON: No comparisons FINDINGS: A three-view lumbar spine examination was performed. Lumbar bodies are normal in height and alignment. No fracture or acute bony process seen. No disc spa ce narrowing. Slight narrowing at the L5-S1 disc level can be seen normally. No other significant fin dings. No pars defects identified. IMPRESSION: Negative Lumbar Spine examination. Ongoing concerns for disc, central canal or occult bone process can be further evaluated with outpati ent MRI imaging.
--- NOTE | 2021-12-31 17:23 | EDPHYS ---
Physician Documentation [facility] Name: Marii Bahena Age: 41 yrs Sex: Female : 1980 Arrival Date: 12/31/2021 Time: 12:08 Bed 11 Private MD: ED Physician Silvina Connors HPI: 12/31 13:53 This 41 yrs old Female presents to ER via Ambulatory with complaints of Back pm1 Pain. 13:53 The patient presents with pain that is acute. The symptoms are located in the low back. pm1 Onset: The symptoms/episode began/occurred today. The pain radiates to the right leg and left leg. Associated signs and symptoms: Pertinent negatives: numbness, tingling. The problem was sustained when lifting heavy object. Modifying factors: The patient symptoms are alleviated by remaining still, the patient symptoms are aggravated by movement. Severity of symptoms: in the emergency department the symptoms are unchanged. The patient has not experienced similar symptoms in the past. SETTER UP: 13:52 LMP 12/02/2021 iw Historical: - Allergies: 13:52 No Known Allergies; iw - PMHx: 13:52 Anemia; Hypertension; Migraines; iw - PSHx: 13:53 tubal ligation; iw - Social history:: Smoking status: Patient denies any tobacco usage or history of. ROS: 13:53 Constitutional: Negative for fever, chills, and weight loss, Cardiovascular: Negative pm1 for chest pain, palpitations, and edema, Respiratory: Negative for shortness of breath, cough, wheezing, and pleuritic chest pain, Abdomen/GI: Negative for abdominal pain, nausea, vomiting, diarrhea, and constipation. 13:53 MS/Extremity: Negative for injury and deformity, Skin: Negative for injury, rash, and discoloration, Neuro: Negative for headache, weakness, numbness, tingling, and seizure. 13:53 Back: Positive for of the low back area. 13:53 All other systems are negative. Exam: 13:53 Constitutional: This is a well developed, well nourished patient who is awake, alert, pm1 and in no acute distress. Head/Face: Normocephalic, atraumatic. 13:53 Skin: Warm, dry with normal turgor. Normal color with no rashes, no lesions, and no evidence of cellulitis. MS/ Extremity: Pulses equal, no cyanosis. Neurovascular intact. Full, normal range of motion. 13:53 Cardiovascular: Exam negative for acute changes, Rate: normal, Rhythm: regular, Pulses: no pulse deficits are appreciated, Heart sounds: normal. 13:53 Respiratory: Exam negative for acute changes, respiratory distress, shortness of breath, Breath sounds: are clear throughout. 13:53 Abdomen/GI: Inspection: abdomen appears normal, Palpation: abdomen is soft and non-tender, in all quadrants. 13:53 Back: vertebral tenderness, is appreciated at lumbar spine, muscle spasm, is appreciated in the low back area. 13:53 Neuro: Exam negative for acute changes, Orientation: is normal, Mentation: is normal, Motor: is normal, moves all fours. Vital Signs: 13:51 BP 156 / 76; Pulse 84; Resp 16; Temp 97.9; Pulse Ox 100% on R/A; Pain 8/10; ss 16:06 Resp 16; Pain 5/10; ss MDM: 15:28 Patient medically screened. pm1 17:22 Data reviewed: vital signs. Data interpreted: Pulse oximetry: on room air is 100 %. pm1 Interpretation: normal. Counseling: I had a detailed discussion with the patient and/or guardian regarding: the historical points, exam findings, and any diagnostic results supporting the discharge/admit diagnosis, radiology results, the need for outpatient follow up, to return to the emergency department if symptoms worsen or persist or if there are any questions or concerns that arise at home. 12/31 13:53 Order name: Lumbar Spine (3 Views) XRAY; Complete Time: 15:59 pm1 Administered Medications: 14:04 Drug: [place] (HYDROcodone-acetaminophen) (7.5 mg-325 mg) 1 tabs Route: PO; iw 17:33 Follow up: Response: No adverse reaction; Pain is decreased ss 14:04 Drug: Lidoderm Patch 5 % (700 mg/patch) 1 patches Route: Topical; Site: affected area; iw 14:04 Drug: Ketorolac 60 mg Route: IM; Site: left gluteus; iw 17:33 Follow up: Response: No adverse reaction; Pain is decreased ss Disposition Summary: 12/31/21 17:22 Discharge Ordered Location: Home pm1 Problem: new pm1 Symptoms: have improved pm1 Condition: Stable pm1 Diagnosis - Low back pain pm1 Followup: pm1 - With: Emergency Department - When: As needed - Reason: Worsening of condition Followup: pm1 - With: Private Physician - When: 2 - 3 days - Reason: Recheck today's complaints, Continuance of care, Re-evaluation by your physician Discharge Instructions: - Discharge Summary Sheet pm1 - Acute Back Pain, Adult pm1 - Back Injury Prevention, [id number] pm1 Forms: - Medication Reconciliation Form pm1 - Thank You Letter pm1 - Antibiotic Education pm1 - Prescription Opioid Use pm1 - Work release form pm1 Prescriptions: - Lidoderm 5 % Topical adhesive patch,medicated - apply 1 patch by TRANSDERMAL route once daily As needed 12 hours on and 12 pm1 hours off in a 24 hour period; 10 patch; Refills: 0, Product Selection Permitted - Cyclobenzaprine 10 mg Oral Tablet - take 1 tablet by ORAL route every 8 hours As needed; 30 tablet; Refills: 0, pm1 Product Selection Permitted - Diclofenac Sodium 75 mg Oral Tablet Sustained Release - take 1 tablet by ORAL route 2 times per day; 30 tablet; Refills: 0, Product pm1 Selection Permitted - Tylenol-Codeine #3 300 mg-30 mg Oral - take 2 tablet by ORAL route every 6 hours As needed; 20 tablet; Refills: 0, pm1 Product Selection Permitted Addendum: 01/02/2022 18:39 Co-signature as Attending Physician, Silvina kennedy a2 Signatures: Dispatcher [employer] Jyothi Lomeli RN RN iw Smirch, Shelby, RN RN ss Sebastián Johnson, ABHAY ODD JOBS DAY WORKER 1 Silvina Connors MD MD de2
--- NOTE | 2021-12-31 17:23 | ER ---
Nurse's Notes [facility] Name: Marii Bahena Age: 41 yrs Sex: Female : 1980 Arrival Date: 12/31/2021 Time: 12:08 Bed 11 Private MD: Diagnosis: Low back pain Presentation: 12/31 13:50 Chief complaint: Patient states: [place] [employer] [employer], was lifting heavy items iw and now has back pain. Coronavirus screen: At this time, the client does not indicate any symptoms associated with coronavirus-19. Ebola Screen: Patient negative for fever greater than or equal to 101.5 degrees Fahrenheit, and additional compatible Ebola Virus Disease symptoms Patient denies exposure to infectious person. Patient denies travel to an Ebola-affected area in the 21 days before illness onset. No symptoms or risks identified at this time. Risk Assessment: Do you want to hurt yourself or someone else? Patient reports no desire to harm self or others. Onset of symptoms was December 31, 2021. 13:50 Method Of Arrival: Ambulatory iw 13:50 Acuity: JEREMIAH 4 iw 13:51 Initial Sepsis Screen: Does the patient meet any 2 criteria? No. Patient's initial iw sepsis screen is negative. Does the patient have a suspected source of infection? No. Patient's initial sepsis screen is negative. EXCEL SPECIALIST: 13:52 LMP 12/02/2021 iw Historical: - Allergies: 13:52 No Known Allergies; iw - PMHx: 13:52 Anemia; Hypertension; Migraines; iw - PSHx: 13:53 tubal ligation; iw - Social history:: Smoking status: Patient denies any tobacco usage or history of. Screenin:04 Abuse screen: Denies threats or abuse. Denies injuries from another. Nutritional ss screening: No deficits noted. Tuberculosis screening: Never had TB. Fall Risk None identified. Assessment: 16:04 General: Appears uncomfortable, Behavior is calm, cooperative, Pt reports feeling ss better since she was given medication during triage. Pain: Pain. Pain: Complains of pain in low back Pain currently is 5 out of 10 on a pain scale. at worst was 8 out of 10 on a pain scale. Is continuous. Neuro: Level of Consciousness is awake, alert, obeys commands, Oriented to person, place, time, situation. Cardiovascular: Capillary refill < 3 seconds is brisk in bilateral fingers. Respiratory: Airway is patent Respiratory effort is even, unlabored, Respiratory pattern is regular, symmetrical. GI: No signs and/or symptoms were reported involving the gastrointestinal system. Derm: Skin is intact, is healthy with good turgor, Skin is dry, Skin is pink, warm \T\ dry. normal. Musculoskeletal: Circulation, motion, and sensation intact. Range of motion: intact in all extremities, Swelling absent. 17:26 Reassessment: Patient appears in no apparent distress at this time. Patient and/or ss family updated on plan of care and expected duration. Pain level reassessed. Patient is alert, oriented x 3, equal unlabored respirations, skin warm/dry/pink. Vital Signs: 13:51 BP 156 / 76; Pulse 84; Resp 16; Temp 97.9; Pulse Ox 100% on R/A; Pain 8/10; ss 16:06 Resp 16; Pain 5/10; ss ED Course: 12:08 Patient arrived in ED. mr 13:51 Triage completed. iw 13:53 Sebastián Johnson NP is PHCP. pm1 13:53 Silvina Connors MD is Attending Physician. pm1 13:53 Arm band placed on. iw 14:20 Lumbar Spine (3 Views) XRAY In Process Unspecified. EDMS 16:04 Colleen Mims, CRISTINA is Primary Nurse. ss 16:04 Patient has correct armband on for positive identification. Bed in low position. Call ss light in reach. Adult w/ patient. 16:04 No provider procedures requiring assistance completed. Patient did not have IV access ss during this emergency room visit. Administered Medications: 14:04 Drug: [place] (HYDROcodone-acetaminophen) (7.5 mg-325 mg) 1 tabs Route: PO; iw 17:33 Follow up: Response: No adverse reaction; Pain is decreased ss 14:04 Drug: Lidoderm Patch 5 % (700 mg/patch) 1 patches Route: Topical; Site: affected area; iw 14:04 Drug: Ketorolac 60 mg Route: IM; Site: left gluteus; iw 17:33 Follow up: Response: No adverse reaction; Pain is decreased ss Outcome: 17:22 Discharge ordered by . pm1 17:26 Discharged to home ambulatory. ss 17:26 Condition: good 17:26 Discharge instructions given to patient, family, Instructed on discharge instructions, follow up and referral plans. medication usage, Demonstrated understanding of instructions, follow-up care, medications. 17:33 Patient left the ED. ss Signatures: Dispatcher [employer] Desirae Rogers Jyothi Ryan, RN RN iw Colleen Mims RN RN ss Marinas, Patrick, MOLDER HELPER MOLDER HELPER pm1 Corrections: (The following items were deleted from the chart) 16:06 13:51 BP 156 / ???; Pulse 84bpm; Resp 16bpm; Pulse Ox 100% RA; Temp 97.9F; iw ss
[2021-12-31 21:22] VITALS: BP 156/76; TEMP 97.9; O2SAT 100
== END 2021-12-31 17:33 | disposition home or self-care (01) ==
LOC: ER 12:03
DX: M54.50 Low back pain, unspecified (principal); I10 Essential (primary) hypertension
CPT/HCPCS: 72100; 96372; 99283